=== PATIENT | female | born 1985 | race Caucasian/White ===

== ENCOUNTER 2018-10-30 08:37 | Emergency (ER) | payer SELFPAY ==
[2018-10-30 08:43] VITALS: BP 119/75
[2018-10-30] MEDS ORDERED: TETRACAINE HCL 0.5% OPH SOLN 4 ML OD ONE (09:16)
--- NOTE | 2018-10-30 10:05 | ER Document Report ---
HPI - HPI Patient complains to provider of: Right eye redness Time Seen by Provider: 10/30/18 09:09 Onset: Other - 3 days Onset/Duration: Persistent Pain Level: Denies Context: Patient presents complaining of right eye redness and swelling to the eyelid. Patient denies any injury to the eye. Patient denies wearing glasses or contact lenses. Patient states that today she has had some blurring to her vision. Patient did use a prescription of Polytrim but some family member had for 1 dose to the eye in an attempt to help her symptoms. Patient states that her eye started to burn after administration of that medication. Patient denies any pain with movement of the eye. Associated Symptoms: Other - Right eye redness. denies: Fever Exacerbated by: Denies Relieved by: Denies Similar symptoms previously: No Recently seen / treated by doctor: No - ROS ROS below otherwise negative: Yes Systems Reviewed and Negative: Yes All other systems reviewed and negative - CONSTITUTIONAL Constitutional: DENIES: Fever, Chills - EENT EENT: REPORTS: Eye problems - rt eye pain. DENIES: Sore Throat, Ear Pain - NEURO Neurology: REPORTS: Headache - 2 days ago, now gone, Vision blurred - Right eye only. DENIES: Weakness, Dizzinesss / Vertigo - GASTROINTESTINAL Gastrointestinal: DENIES: Nausea - REPRODUCTIVE Reproductive: DENIES: : - DERM Skin Color: Normal Skin Problems: None Past Medical History - General Information source: Patient - Social History Smoking Status: Current Some Day Smoker Chew tobacco use (# tins/day): No Frequency of alcohol use: Social Drug Abuse: None Occupation: None Lives with: Family Family History: Reviewed & Not Pertinent Patient has suicidal ideation: No Patient has homicidal ideation: No - Medical History Medical History: Negative Renal/ Medical History: Denies: Hx Peritoneal Dialysis Past Surgical History: Reports: Hx Breast Surgery Vertical Provider Document - CONSTITUTIONAL Agree With Documented VS: Yes Exam Limitations: No Limitations General Appearance: WD/WN, No Apparent Distress - INFECTION CONTROL TRAVEL OUTSIDE OF THE [place] IN LAST 30 DAYS: No - HEENT HEENT: Atraumatic, Normocephalic, PERRLA Notes: Extraocular movements intact, no tenderness with eye movement. Sclera of right eye injected, tearing to right eye. Conjunctival inflamed and swollen to right eye. Pressure to right eye 14 with a confidence interval of 95. No proptosis. - NECK Neck: Normal Inspection - RESPIRATORY Respiratory: Breath Sounds Normal, No Respiratory Distress - CARDIOVASCULAR Cardiovascular: Regular Rate, Regular Rhythm - BACK Back: Normal Inspection - MUSCULOSKELETAL/EXTREMETIES Musculoskeletal/Extremeties: MAEW - NEURO Level of Consciousness: Awake, Alert, Appropriate Motor/Sensory: No Motor Deficit - DERM Integumentary: Warm, Dry, No Rash Course - Re-evaluation Re-evalutation: 10/30/18 10:[address] Isis Bethea regarding patient presentation and exam findings. Recommends erythromycin ophthalmic ointment. 10/30/18 10:13 Patient with unilateral conjunctivitis. No concern for preseptal or orbital cellulitis at this time. Good return precautions given. Patient encouraged to follow-up with ophthalmology for further evaluation. - Vital Signs Vital signs: Temp Pulse Resp BP Pulse Ox 98.1 F 77 16 119/75 99 10/30/18 08:42 10/30/18 08:42 10/30/18 08:42 10/30/18 08:42 10/30/18 08:42 Discharge - Discharge Clinical Impression: Conjunctivitis Qualifiers: Conjunctivitis type: unspecified Laterality: right Qualified Code(s): H10.9 - Unspecified conjunctivitis Condition: Stable Disposition: HOME, SELF-CARE Instructions: Antibiotic Therapy ([facility]), Conjunctivitis ([facility]) Additional Instructions: Return immediately for any new or worsening symptoms Followup with your primary care provider, call tomorrow to make a followup appointment Follow-up with ophthalmology for further evaluation, call today for an appointment Prescriptions: Erythromycin Base [E-Mycin 0.5% Oph Ointment 3.5 gm] 1 applic OD QID #1 tube Referrals: [facility] [Provider Group] - Follow up as needed
== END 2018-10-30 10:30 | disposition home or self-care (01) ==
LOC: ER 08:37
DX: H10.9 Unspecified conjunctivitis (principal); F17.200 Nicotine dependence, unspecified, uncomplicated
CPT/HCPCS: 99282; J3490

== ENCOUNTER 2018-12-02 08:40 | Emergency (ER) | payer SELFPAY ==
[2018-12-02 08:44] VITALS: BP 107/70
[2018-12-02] MEDS ORDERED: FAMOTIDINE 20 MG TABLET PO ONE (09:19)
[2018-12-02] MEDS ORDERED: PREDNISONE 20 MG TABLET PO ONE (09:19)
[2018-12-02] MEDS ORDERED: LORATADINE 10 MG TABLET PO ONE (09:19)
--- NOTE | 2018-12-02 09:23 | ER Document Report ---
ED Skin Rash/Insect Bite/Abscs - General Chief Complaint: Rash Stated Complaint: SKIN ISSUE Time Seen by Provider: 12/02/18 09:10 Mode of Arrival: Ambulatory Information source: Patient Notes: 33-year-old female presented to ED for complaint of rash and hives times 3 days all over her body. She states 3 days ago she started with rash to both legs and it is slowly progressed to now follow over her body. She states she been using Benadryl and some hydrocortisone cream with no relief. She states she does not using any new lotions potions and is does not have an animal. Patient is alert oriented respirations regular and unlabored no difficulty breathing pupils equal and react to light no swelling to the face or mouth. TRAVEL OUTSIDE OF THE [place] IN LAST 30 DAYS: No - HPI Patient complains to provider of: Skin rash/lesion Onset: Yesterday Onset/Duration: Gradual Quality of pain: No pain Severity: None Pain Level: Denies Skin Character: Rash Quality of rash: Itchy Identify cause: No Exacerbated by: Denies Relieved by: Denies Similar symptoms previously: No Recently seen / treated by doctor: No - Related Data Allergies/Adverse Reactions: No Known Allergies Allergy (Verified 12/02/18 08:41) Past Medical History - General Information source: Patient - Social History Smoking Status: Current Every Day Smoker Cigarette use (# per day): Yes - 1-2 cigarettes a day Chew tobacco use (# tins/day): No Smoking Education Provided: Yes - Woman Frequency of alcohol use: None Drug Abuse: None Lives with: Family Family History: Reviewed & Not Pertinent Patient has suicidal ideation: No Patient has homicidal ideation: No - Past Medical History Cardiac Medical History: Reports: None Pulmonary Medical History: Reports: None EENT Medical History: Reports: None Neurological Medical History: Reports: None Endocrine Medical History: Reports: None Renal/ Medical History: Reports: None Malignancy Medical History: Reports: None GI Medical History: Reports: None Musculoskeletal Medical History: Reports None Skin Medical History: Reports None Psychiatric Medical History: Reports: None Traumatic Medical History: Reports: None Infectious Medical History: Reports: None Past Surgical History: Reports: Hx Breast Surgery, Hx Gynecologic Surgery - Sure - Immunizations Immunizations up to date: Yes Hx Diphtheria, Pertussis, Tetanus Vaccination: Yes - 2015 Review of Systems - Review of Systems Constitutional: No symptoms reported EENT: No symptoms reported Cardiovascular: No symptoms reported Respiratory: No symptoms reported Gastrointestinal: No symptoms reported Genitourinary: No symptoms reported Female Genitourinary: No symptoms reported Musculoskeletal: No symptoms reported Skin: Rash Hematologic/Lymphatic: No symptoms reported Neurological/Psychological: No symptoms reported Physical Exam - Vital signs Vitals: Temp Pulse Resp BP Pulse Ox 98.2 F 98 14 107/70 97 12/02/18 08:43 12/02/18 08:43 12/02/18 08:43 12/02/18 08:43 12/02/18 08:43 Interpretation: Normal - General General appearance: Appears well, Alert - HEENT Head: Normocephalic, Atraumatic Eyes: Normal Pupils: PERRL - Respiratory Respiratory status: No respiratory distress Chest status: Nontender Breath sounds: Normal Chest palpation: Normal - Cardiovascular Rhythm: Regular Heart sounds: Normal auscultation Murmur: No - Abdominal Inspection: Normal Distension: No distension Bowel sounds: Normal Tenderness: Nontender Organomegaly: No organomegaly - Back Back: Normal, Nontender - Extremities General upper extremity: Normal inspection, Nontender, Normal color, Normal ROM, Normal temperature General lower extremity: Normal inspection, Nontender, Normal color, Normal ROM, Normal temperature, Normal weight bearing. No: Jhonathan's sign - Neurological Neuro grossly intact: Yes Cognition: Normal Orientation: AAOx4 Ian Coma Scale Eye Opening: Spontaneous Ian Coma Scale Verbal: Oriented [place] Coma Scale Motor: Obeys Commands [place] Coma Scale Total: 15 Speech: Normal Motor strength normal: LUE, RUE, LLE, RLE Sensory: Normal - Psychological Associated symptoms: Normal affect, Normal mood - Skin Skin Temperature: Warm Skin Moisture: Dry Skin Color: Normal Skin irregularity: Rash Location of irregularity: Generalized Character of irregularity: Urticarial Course - Re-evaluation Re-evalutation: 12/02/18 09:41 Patient treated with Claritin, prednisone, and Pepcid. 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 She states she does not know of anything she is used under the ordinary that would cause the sudden rash. She denies having any animals. Patient verbalized understanding and agreement with treatment plan. Patient was discharged home with prescription for prednisone. - Vital Signs Vital signs: Temp Pulse Resp BP Pulse Ox 98.2 F 98 14 107/70 97 12/02/18 08:43 12/02/18 08:43 12/02/18 08:43 12/02/18 08:43 12/02/18 08:43 Discharge - Discharge Clinical Impression: Rash and nonspecific skin eruption Condition: Stable Disposition: HOME, SELF-CARE Instructions: Family Physicians / Practices Additional Instructions: ACUTE ALLERGIC REACTION: Your symptoms are due to an allergic reaction. Allergy can cause hives, swelling of the hands, feet, and face, hoarseness, and difficulty swallowing or breathing. It may be due to exposure to medication, animal dander, foods, infection, or insect bites. Medication is a common cause, even when prior use of this same medication caused no problems. Acute treatment may include adrenalin and antihistamines. Usually, the specific allergic agent can't be identified unless repeated episodes occur. Home treatment includes the following: (1) Stop any suspicious medications. This will be discussed with you. (2) Oral antihistamines for the next four to five days. Example, diphenhydramine (Benadryl) every four hours. (3) You may also use cimetidine (Tagamet), ranitidine (Zantac), or famotidine (Pepcid) every four hours if diphenhydramine is not controlling itching and hives. (4) Avoid aspirin until the hives completely disappear. (5) Avoid hot baths or showers until the hives are completely gone. Call the doctor if faintness, difficulty swallowing, tightness in the chest, or wheezing occurs. STEROID MEDICATION: You have been given a medicine of the cortisone/steroid class. This medication is used to control inflammation or allergy. It is usually only given for a short period of time, until the acute process subsides. There are usually no side effects from short-term use of cortisone-like medications. Some persons feel an increased sense of well-being and are not sleepy at bedtime. Long-term use of cortisone medications is best avoided, unless required for a severe condition. If your condition does not remit, or relapses after the course of corticosteroid medication, you should consult your physician. ACID-SUPPRESSING MEDICATION: You have a prescription for medicine which reduces the stomach's secretion of acid. Examples include Zantac, Tagament, and Pepcid. These drugs are often used to allow healing of ulcers or esophagitis. They may be needed to prevent recurrence of ulcers in some patients, or to prevent damage from acid reflux in the esophagus. Take all medication as prescribed, even after the pain is gone. Regular antacids may be added as needed if you have symptoms while taking this medicine. These medications sometimes are prescribed for allergic reactions because they have anti-histaminic effects and relieve the rash and itching of the reaction. There are usually no side effects from this medication. But, in rare cases and particularly in the elderly, serious problems can occur. Contact your doctor if there is fever, rash, hallucinations, confusion, or unusual bruising. Contact your doctor at once if you develop lightheadedness, black or bloody stool, or bloody vomitus. ANTIHISTAMINES: An antihistamine has been given and/or prescribed to control your symptoms. Antihistamines are used for many reasons, including itching, watering eyes, runny nose, allergic swelling, hives, and insect stings. Antihistamines may cause drowsiness, especially with the first dose. Do not operate machinery or drive while under the effects of the medication. Other common side effects include dry mouth and eyes. In older persons, antihistamines can occasionally cause urinary retention, constipation, and trouble focusing the eyes. Do not combine the medication with alcohol, or with any other medication without talking to your doctor. USE OF DIPHENHYDRAMINE: The use of diphenhydramine (Benadryl) has been recommended to control allergic symptoms. The 25 mg strength is available over- the-counter, as well as the elixir. This antihistamine is used for many symptoms. It's useful for itching, watering eyes and nose, allergic swelling, hives, and insect stings. The medication can be repeated four times daily. Age Elixir (12.5 mg/tsp) 25 mg pill 2-3 yr 1/2 tsp 4-8 yr 1 tsp 9-14 yr 2 tsp one tab adult 1-2 tabs Antihistamines may cause drowsiness, especially with the first dose. Do not operate machinery or drive while under the effects of the medication. Do not combine the medication with alcohol, or with any other medication without talking to your doctor. FOLLOW-UP CARE: If you have been referred to a physician for follow-up care, call the physicians office for an appointment as you were instructed or within the next two days. If you experience worsening or a significant change in your symptoms, notify the physician immediately or return to the Emergency Department at any time for re-evaluation. Prescriptions: Prednisone [Sterapred Ds] 1 pkg PO ASDIR PRN 12 Days [email or web address] PRN Reason: Forms: Smoking Cessation Education
== END 2018-12-02 09:30 | disposition home or self-care (01) ==
LOC: ER 08:40
DX: R21 Rash and other nonspecific skin eruption (principal); L50.9 Urticaria, unspecified; F17.210 Nicotine dependence, cigarettes, uncomplicated
CPT/HCPCS: 99282; J7512